=== PATIENT | male | born 1980 | race Two or more races ===

== ENCOUNTER → 2025-08-02 | Outpatient (CLI) | payer MEDICAID, SELFPAY ==
--- NOTE | 2025-08-02 15:05 | XR_ITS ---
Examination: Ultrasound pancreas TECHNIQUE: Grayscale sonographic images pancreas Date and time: August 02, 2025 1510 hours INDICATIONS: Hyperglycemia on laboratory examination this month FINDINGS: Pancreas 3.0 cm, no pancreatic mass IMPRESSION: No pancreatic enlargement
== END | disposition home or self-care (01) ==
PROVIDERS: PCP Nurse Practitioner Family; Referring Provider Nurse Practitioner Family; Visit Provider Nurse Practitioner Family
DX: E78.1 Pure hyperglyceridemia (principal)
CPT/HCPCS: 76705